=== PATIENT | female | born 1960 | race Caucasian/White ===

== ENCOUNTER → 2021-03-28 09:31 | Outpatient (BNVA) | payer BC, SELFPAY | PROVIDERS: Family Provider Nurse Practitioner Family; PCP Nurse Practitioner Family; Referring Provider Family Medicine; Visit Provider Orthopaedic Surgery | DX: M25.562 Pain in left knee (principal) | CPT/HCPCS: 73560; 73565 ==

== ENCOUNTER → 2021-04-04 08:04 | Outpatient (BNVA) | payer BC, SELFPAY | PROVIDERS: Family Provider Nurse Practitioner Family; PCP Nurse Practitioner Family; Visit Provider Orthopaedic Surgery | DX: Z01.812 Encounter for preprocedural laboratory examination (principal); Z20.822 Contact with and (suspected) exposure to COVID-19 | CPT/HCPCS: 87635 ==

== ENCOUNTER 2021-04-10 09:41 | Day surgery (SDC) | payer BC, SELFPAY ==
[2021-04-09 11:07] VITALS: BMI 22.3
--- NOTE | 2021-04-09 11:25 | ANES.PREANE2 ---
Pre-Anesthetic Assessment Pre-Anesthetic Assessment: Height/Weight: Height 1.6 m Weight 57.153 kg Preop Diagnosis: Knee Lateral meniscal tear, degenerative joint disease Proposed Procedure: Operation Date: 04/10/21 10:35 Proposed Procedures p left knee arthroscopy with meniscectomy 84516 S83.207A M17.12(Left) - Brian Perera MD Was Beta Hteal taken within 24 hours: N/A Was Clonidine taken within 24 hours: N/A Social: Social History: Tobacco and No alcohol Exam: Pre-Anes Outpt Exam: alert, oriented x 3 and regular rate & rhythm Airway: Submandibular: WNL Cervical ROM: WNL MP: 2 Dentition: False Pulmonary: Pulmonary: COPD Musc/skel: Musc/skel: OA/DJD Anesthetic Plan: ASA status: 3 Anesthesia: General Risk of > 500 ml blood loss (7ml/kg in children): No PFSH Anesthesia PFSH: Social History (Updated 03/28/21 @ 09:40 by Melissa Hay LPN) Smoking and tobacco status: current every day smoker cigarettes Packs smoked per day: 1 Years cigarettes smoked: 35 Smoking risk assessment/counseling performed?: Yes Alcohol intake: current Alcohol intake frequency: holidays/special occasions only Data Anesthesia Cardiac Studies: No Data to Display
[2021-04-10] VITALS (9 sets, daily range): BP systolic 92–119; BP diastolic 57–71; PULSE 75–86; RESP 12–23; TEMP 36.6–36.7; O2SAT 94–98
--- NOTE | 2021-04-10 10:02 | P.ANESUD_ITS ---
Pre-Anesthetic Update Pre-Anesthetic Assessment: Date of Surgery/Procedure: 04/10/21 Preop Sepideh gnosis: Knee Lateral meniscal tear, degenerative joint disease Proposed Procedure: Operation Date: 04/10/21 11:20 Proposed Procedures p left knee arthroscopy with meniscectomy 62734 S83.207A M17.12(Left) - Brian Perera MD Any changes to Pre-Anesthetic Assessment?: No Exam: Pre-Anes Outpt Exam: alert, oriented x 3, clear to auscultation bilaterally and regular rate & rhythm Cardiac Studies: No Data to Display
[2021-04-10] MEDS: sodium chloride 0.9% 1,000 ML 30 ML IV (10:19)
--- NOTE | 2021-04-10 11:08 | W.PM.OPSUD ---
Surgery/Procedure H&P Update DATE OF PROCEDURE: April 10, 2021 DATE H&P PERFORMED: 03/28/21 PREOP DIAGNOSIS: Knee Lateral meniscal tear, degenerative joint disease PLANNED PROCEDURE: Operation Date: 04/10/21 11:20 Proposed Procedures p left knee arthroscopy with meniscectomy 13703 S83.207A M17.12(Left) - Brian Perera MD
[2021-04-10] MEDS: morphine 4 mg/mL SDV 1 mL 8 MG IM (11:32)
--- NOTE | 2021-04-10 12:11 | PM.OP ---
Operative Report Date of procedure: April 10, 2021 Pre-op Diagnosis: Knee Lateral meniscal tear, degenerative joint disease Post-op diagnosis: same Post-op Findings: Lateral meniscal tear, degenerative joint disease left knee Procedure Done: Arthroscopic partial left lateral meniscectomy Chondroplasty patella Pathology: none sent Surgeon: Brian Perera Anesthesia: General Estimated blood loss (mL): 5 Tourniquet time (min): 15 Findings: The patient had a large unstable peripheral lateral meniscal detachment for the entire posterior lateral meniscus could be displaced anterior to the lateral femoral condyle. 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 She is prepped and draped in the supine position with a tourniquet on the left thigh. The knee was infiltrated with 30 cc of 0.5% Marcaine with epi and 4 mg of morphine. A timeout was performed. The knee was entered through standard inferior medial and inferior lateral portal. The medial meniscus was probed and found to be intact. Softening and thinning of the cartilage over the medial femoral condyle was noted but no unstable flaps or fissures were identified to benefit from debridement. The leg was then placed in a [id number] position revealing complex tearing of the lateral meniscus. With probing was found the entire posterior lateral meniscus could be reflected anterior lateral femoral condyle. Due to the patient's age and degenerative changes she was not thought to be a candidate for repair. Decision was made to proceed with a lateral meniscectomy. Utilizing a straight basket unstable portion of the meniscus between the posterior and middle third was resected. An incisor shaver could then be introduced removing the remaining unstable posterior third of the meniscus. The werewolf probe was used to debride additional meniscal degeneration in the middle and anterior third of the meniscus centrally. Removing unstable meniscus during entire posterior third of the lateral meniscus was removed. Attention was then focused on the patella. Unstable flaps and fissures were debrided. Unstable subchondral bone was revealed over both the medial and lateral facets. The knee was irrigated with saline. Portals were closed with 3-0 Prolene. Sterile dressings were applied. The patient was extubated and taken to recovery room in stable condition.
[2021-04-10] MEDS: HYDROcodone-acetaminophen 5-325 mg Tablet 1 TAB PO (13:20)
--- NOTE | 2021-04-10 14:56 | ANE.PACU2 ---
Inpatient post-anesthesia follow up: Airway intact: Yes Vital signs: Temperature 97.9 F Pulse Rate 75 Respiratory Rate 16 Blood Pressure 101/57 Pulse Oximetry 95 Oxygen Delivery Me thod Room Air Oxygen Flow Rate Fraction of Inspir ed Oxygen Hydration adequate: Yes Nausea and vomiting: No Pain level: 2 Mental status: Baseline
== END 2021-04-10 13:30 | disposition home or self-care (01) ==
PROVIDERS: PCP Nurse Practitioner Family; Visit Provider Orthopaedic Surgery
PROC: (CPT 29870; principal; 2021-04-10 11:10)
DX: S83.282A Other tear of lateral meniscus, current injury, left knee, initial encounter (principal); X58.XXXA Exposure to other specified factors, initial encounter; M17.12 Unilateral primary osteoarthritis, left knee; J44.9 Chronic obstructive pulmonary disease, unspecified; F17.210 Nicotine dependence, cigarettes, uncomplicated
CPT/HCPCS: 29881; 96365; J0690; J2250; J2270; J2405; J2704; J3010; J3490; J7030

== ENCOUNTER 2022-02-06 09:34 | Outpatient (CLI) | payer OTHER, SELFPAY ==
--- NOTE | 2022-02-06 09:43 | MM_ITS ---
WS: [id number] SCREENING 3D TOMOSYNTHESIS DIGITAL MAMMOGRAM WITH CAD HISTORY: SCREENING COMPARISON: 10/16/2020, 02/02/2017 Bilateral CC and MLO views submitted. Computer aided detection analyzed. Breast composition: The breasts are heterogeneously dense, which may obscure small masses. There are several asymmetries in the LEFT breast which need further evaluation. On the CC projection there are asymmetries in the central posterior and lateral posterior breast. On the lateral view there is an as ymmetry posterior in the inferior breast. The RIGHT breast is negative. MM/[id number] IMPRESSION: BI-RADS: 0-Incomplete: Need additional imaging evaluation FOLLOW UP: Need Additional Imaging LEFT breast: Spot compression views (CC and MLO). True ML. Ultrasound to follow if abnormality persists.
== END 2022-02-06 09:35 | disposition home or self-care (01) ==
LOC: RADSHAW 09:36
PROVIDERS: PCP Nurse Practitioner Family; Visit Provider Nurse Practitioner Family
DX: Z12.31 Encounter for screening mammogram for malignant neoplasm of breast (principal)
CPT/HCPCS: 77063; 77067

== ENCOUNTER 2022-03-10 08:50 | Outpatient (CLI) | payer OTHER, SELFPAY ==
--- NOTE | 2022-03-10 | US_ITS ---
ADDITIONAL VIEWS LEFT MAMMOGRAM LEFT BREAST ULTRASOUND HISTORY: ABNORMAL MAMMOGRAM COMPARISON: 02/06/2022 and 10/16/2020 and 02/02/2017 LEFT MAMMOGRAM: Spot compression views and true ML. The asymmetries in the LEFT breast nearly completely resolved. There is an asymmetry along the inferior LEFT breast seen best on the MLO projection which may been present on prior studies but better seen today due to involution of fibroglandular tissue. There are benign calcifications also in the breast. LEFT BREAST ULTRASOUND 2-D and color Doppler imaging submitted. Ultrasound at 12:00 reveals very dense fibroglandular tissue with no mass. 6:00 there is a very small cyst. 2:00 there is a benign lymph node. There are no suspicious findings. MM/[place] [id number] IMPRESSION: BI-RADS: 3-Probably Benign FOLLOW UP: 6 Month Follow-up The new asymmetries nearly completely resolve with additional imaging and no abnormality by ultrasound. Favor these are normal fibroglandular asymmetries in the involuting fibroglandular tissue. Recommend 6 month diagnostic mammogram and possible ultrasound. RAVEN
--- NOTE | 2022-03-10 08:56 | MM_ITS ---
WS: [id number] ADDITIONAL VIEWS LEFT MAMMOGRAM LEFT BREAST ULTRASOUND HISTORY: ABNORMAL MAMMOGRAM COMPARISON: 02/06/2022 and 10/16/2020 and 02/02/2017 LEFT MAMMOGRAM: Spot compression views and true ML. The asymmetries in the LEFT breast nearly completely resolved. There is an asymmetry along the inferi or LEFT breast seen best on the MLO projection which may been present on prior studies but better see n today due to involution of fibroglandular tissue. There are benign calcifications also in the breas t. LEFT BREAST ULTRASOUND 2-D and color Doppler imaging submitted. Ultrasound at 12:00 reveals very dense fibroglandular tissue with no mass. 6:00 there is a very small cyst. 2:00 there is a benign lymph node. There are no suspicious findings. MM/[place] [id number] IMPRESSION: BI-RADS: 3-Probably Benign FOLLOW UP: 6 Month Follow-up The new asymmetries nearly completely resolve with additional imaging and no ab normality by ultrasound. Favor these are normal fibroglandular asymmetries in t he involuting fibroglandular tissue. Recommend 6 month diagnostic mammogram and possible ultrasound.
== END 2022-03-10 08:51 | disposition home or self-care (01) ==
PROVIDERS: PCP Nurse Practitioner Family; Visit Provider Nurse Practitioner Family
DX: R92.8 Other abnormal and inconclusive findings on diagnostic imaging of breast (principal)
CPT/HCPCS: 76642; 77061

== ENCOUNTER 2022-09-14 13:48 | Outpatient (CLI) | payer OTHER, SELFPAY ==
--- NOTE | 2022-09-14 13:55 | MM_ITS ---
WS: [id number] Left breast diagnostic 3D tomosynthesis digital mammogram, 09/14/2022 Clinical Data: 6 MONTH F/U Comparison: 03/10/2022, 02/06/2022, 10/16/2020, 02/02/2017, 11/18/2005. Findings: The left breast parenchymal pattern shows heterogeneous density. No cysts, masses or clustered calcif ications are seen. There are 2 small boil cysts. There are no secondary signs of carcinoma. No asymme tric tissue is seen. MM/[place] [id number] Impression: 1. Negative left breast mammogram unchanged. 2. Left breast ultrasound will be performed. BIRADS: 2-Benign FOLLOW UP: See Report The CAD aircraft delivery checker was used.
--- NOTE | 2022-09-14 13:56 | US_ITS ---
WS: [id number] Left breast ultrasound, 09/14/2022 Clinical Data: 6 MONTH F/U Comparison: Left breast ultrasound, 03/10/2022 Findings: The left breast was examined in the 6:00 position. No cysts or masses could be seen. Only normal nadir st tissue is noted. US/US breast LT limited* [id number] Impression: 1. Negative left breast ultrasound with no evidence of cyst 6:00 position. 2. Return to annual left breast mammography BIRADS: 1-Negative FOLLOW UP: 1 Year Follow-up
== END 2022-09-14 13:49 | disposition home or self-care (01) ==
LOC: RAD 13:49
PROVIDERS: PCP Nurse Practitioner Family; Visit Provider Nurse Practitioner Family
DX: R92.8 Other abnormal and inconclusive findings on diagnostic imaging of breast (principal)
CPT/HCPCS: 76642; 77061

== ENCOUNTER 2023-06-07 14:48 | Outpatient (CLI) | payer OTHER, SELFPAY ==
--- NOTE | 2023-06-07 15:36 | MM_ITS ---
WS: [email or web address] BILATERAL 3D TOMOSYNTHESIS DIGITAL SCREENING MAMMOGRAPHY WITH CAD CLINICAL INFORMATION: SCREENING HISTORY: Screening mammogram. No current complaints. COMPARISON: 2021 TECHNIQUE: Bilateral CC and MLO views. FINDINGS: The breasts are composed of heterogeneous fibroglandular density tissue, which can limit the detectio n of small underlying mass lesions. No suspicious mass, asymmetry, calcifications, or architectural d istortion. No evidence of malignancy. Punctate and lucent centered calcifications. MM/[id number] IMPRESSION: BI-RADS: 2-Benign FOLLOW UP: 1 Year Follow-up Recommend return to annual screening mammography.
== END 2023-06-07 14:49 | disposition home or self-care (01) ==
PROVIDERS: PCP Nurse Practitioner Family; Visit Provider Nurse Practitioner Family
DX: Z12.31 Encounter for screening mammogram for malignant neoplasm of breast (principal)
CPT/HCPCS: 77063; 77067

== ENCOUNTER → 2023-10-12 13:50 | Outpatient (BNVA) | payer OTHER, SELFPAY | PROVIDERS: PCP Nurse Practitioner Family; Visit Provider Physician Assistant | DX: M17.12 Unilateral primary osteoarthritis, left knee (principal) | CPT/HCPCS: 73560; 73565 ==

== ENCOUNTER → 2024-01-20 13:13 | Outpatient (BNVA) | payer OTHER, SELFPAY | PROVIDERS: PCP Nurse Practitioner Family; Visit Provider Physician Assistant | DX: M17.12 Unilateral primary osteoarthritis, left knee; M16.12 Unilateral primary osteoarthritis, left hip; M25.561 Pain in right knee; M25.562 Pain in left knee | CPT/HCPCS: 73502; 73560; 73565 ==

== ENCOUNTER 2024-03-22 10:10 | Outpatient (CLI) | payer OTHER, SELFPAY ==
--- NOTE | 2024-03-22 11:00 | MR_ITS ---
WS: [id number] MRI LEFT KNEE HISTORY: DJD KNEE, history of prior meniscal repair. COMPARISON: 03/07/2021, radiograph 01/20/2024 Anterior cruciate ligament: Intact. Posterior cruciate ligament: Small caliber proximal posterior cruciate ligament. The distal PCL is no t intact. On the prior MRI from 2020 there was an acute tear at this location. There is no fluid fill ing the gap on today's examination. Consistent with a chronic PCL tear with scarring. Medial collateral ligament: Intact. Posterior lateral corner structures: Intact. Medial menisci: Increased T2 signal in the anterior horn. The anterior horn is small in caliber. The abnormal meniscal signal extends to an abnormal cortical surface of the tibial plateau. Intrasubstanc e degeneration in the posterior horn but no tear. Lateral meniscus: Abnormal configuration of the posterior meniscus. Focal increased T2 signal along t he superior articular surface consistent with a tear. Meniscus appears normal on the prior MRI. Very small caliber anterior horn. Extensor mechanism: Distal quadriceps tendon and patellar tendons are intact. Fluid and soft tissue: Very small joint effusion. There is a small Cyr's cyst. Osseous and articular structures: Patellofemoral compartment: Mild patellofemoral joint space narrowing with mild diffuse chondromalaci a. Slightly greater chondromalacia along the lateral patellar facet. Medial compartment: Large area of abnormal signal involving the medial tibial plateau with extension into the metaphysis. Associated degenerative changes in the medial knee joint with loss of cartilage. No fracture. These changes are new since 2020. Lateral compartment: Mild narrowing of the lateral compartment with diffuse chondromalacia. No marrow edema. MR/MR knee LT wo con* [id number] IMPRESSION: 1. Small caliber PCL with chronic tear distally. Gliosis at the tear site. 2. Abnormal configuration of the posterior horn lateral meniscus. Diffuse abno rmal signal with a tear along the superior articular surface. Anterior horn of the lateral meniscus is very small caliber consistent with a prior tear. 3. Small caliber abnormal anterior horn medial meniscus. Abnormal meniscus is in continuity with abnormal joint space and edema within the tibial plateau. Co nsistent with a meniscal tear. 4. Large area of marrow edema involving the medial tibial plateau with extensi on into the metaphysis. Abnormal signal of the tibial plateau is in continuity with the abnormal meniscus. 5. Mild patellofemoral and lateral compartment joint space narrowing with zuhair dromalacia. 6. Small Cyr's cyst.
== END 2024-03-22 10:11 | disposition home or self-care (01) ==
LOC: RAD 10:11
PROVIDERS: Visit Provider Physician Assistant
DX: M17.12 Unilateral primary osteoarthritis, left knee (principal); M71.22 Synovial cyst of popliteal space [Baker], left knee; M94.262 Chondromalacia, left knee; R93.7 Abnormal findings on diagnostic imaging of other parts of musculoskeletal system; S83.522A Sprain of posterior cruciate ligament of left knee, initial encounter; X58.XXXA Exposure to other specified factors, initial encounter; Z98.890 Other specified postprocedural states
CPT/HCPCS: 73721

== ENCOUNTER 2024-03-22 12:23 | Outpatient (RCR) | payer OTHER, SELFPAY | END 2024-03-23 23:59 | disposition home or self-care (01) | LOC: SPT 12:23 | PROVIDERS: Visit Provider Student in an Organized Health Care Education/Training Program | DX: M70.72 Other bursitis of hip, left hip (principal) | CPT/HCPCS: 97110; 97161 ==

== ENCOUNTER → 2024-09-08 10:33 | Outpatient (BNVA) | payer OTHER, BC, SELFPAY | PROVIDERS: Visit Provider Student in an Organized Health Care Education/Training Program | DX: M25.562 Pain in left knee (principal); M25.561 Pain in right knee | CPT/HCPCS: 73560; 73565 ==

== ENCOUNTER → 2024-10-19 14:18 | Outpatient (BNVA) | payer OTHER, BC, MEDICAID, SELFPAY | PROVIDERS: Visit Provider Physician Assistant | DX: F17.210 Nicotine dependence, cigarettes, uncomplicated (principal); S83.207A Unspecified tear of unspecified meniscus, current injury, left knee, initial encounter; M17.12 Unilateral primary osteoarthritis, left knee; M25.569 Pain in unspecified knee; Z01.818 Encounter for other preprocedural examination; X58.XXXA Exposure to other specified factors, initial encounter | CPT/HCPCS: 73560; 73565; 80053; 80323; 81001; 85025 ==

== ENCOUNTER 2025-01-17 10:00 | Outpatient (CLI) | payer OTHER, BC, MEDICAID, SELFPAY ==
--- NOTE | 2025-01-17 | ECG_ITS ---
[place] ?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 Interpretive Statements EXERCISE STRESS TEST EXERCISE DATA: The patient was exercised by Jose protocol. Baseline heart rate was 98 beats per minute. Baseline blood pressure was 100/67 millimeters of mercury. Maximal predicted heart rate was 157 beats per minute. Maximum heart rate achieved was 153, which was 97% of the maximum predicted heart rate. Maximum blood pressure was 148/50 millimeters of mercury. Total exercise time was 4 minutes 27 seconds. Maximum METs achieved was 7. The reason for ending the test was maximal effort achieved. The patient complained of shortness of breath during the stress test, which then resolved at the end of the test. ELECTROCARDIOGRAM: BASELINE: Showed sinus rhythm, incomplete right bundle branch block, no significant ST-T changes at the baseline noted. [] EXERCISE: At the peak exercise level, [] No significant ST-T changes suggestive of ischemia noted. [] RECOVERY: During the recovery period, heart rate dropped appropriately. No significant ST-T changes in the recovery suggestive of ischemia noted. [] CONCLUSION: 1. Exercise capacity is fair. 2. Heart rate response was appropriate 3. Blood pressure response was appropriate 4. Symptoms not suggestive of ischemia. 5. Stress test is negative for ischemia Electronically Signed On 01-28-2025 01:56:58 CDT by Onur Johnson M.D. [id number]
[2025-01-17 10:09] VITALS: BMI 23.0
[2025-01-17 10:30] VITALS: BP 118/62; PULSE 103
== END 2025-01-17 10:01 | disposition home or self-care (01) ==
LOC: CDL 10:01
PROVIDERS: PCP Nurse Practitioner Family; Visit Provider Nurse Practitioner Family
DX: F17.200 Nicotine dependence, unspecified, uncomplicated (principal)
CPT/HCPCS: 93017